=== PATIENT | female | born 1965 | race Caucasian/White ===

== ENCOUNTER 2017-05-04 13:28 | Outpatient (CLI) | payer OTHER ==
--- NOTE | 2017-05-04 14:26 | RAD ---
THORACIC SPINE SERIES: HISTORY: Followup fracture. COMPARISON: 02/02/17 study. FINDINGS: The T8 compression fracture is stable as compared to the prior exam. Bones appear demineralized. A rthritic changes of the spine are noted. IMPRESSION: Stable T8 compression fracture. POS: [facility]
== END 2017-05-04 13:29 | disposition home or self-care (01) ==
LOC: TBSIIMAG 13:28
PROVIDERS: ATTEND Neurological Surgery
DX: S22.008D Other fracture of unspecified thoracic vertebra, subsequent encounter for fracture with routine healing (principal); S22.069D Unspecified fracture of T7-T8 vertebra, subsequent encounter for fracture with routine healing
CPT/HCPCS: 72070

== ENCOUNTER 2017-10-03 16:00 | Emergency (ER) | payer OTHER ==
[2017-10-03] MEDS ORDERED: Fluorescein Opthalmic Strip ONE (16:53)
[2017-10-03] MEDS ORDERED: Proparacaine 0.5% Opth 15 ML BOT ONE (16:53)
== END 2017-10-03 17:09 | disposition home or self-care (01) ==
LOC: ERS 16:00
DX: T65.91XA Toxic effect of unspecified substance, accidental (unintentional), initial encounter (principal); S05.01XA Injury of conjunctiva and corneal abrasion without foreign body, right eye, initial encounter; H10.211 Acute toxic conjunctivitis, right eye; M06.9 Rheumatoid arthritis, unspecified; M81.0 Age-related osteoporosis without current pathological fracture; Z79.899 Other long term (current) drug therapy
CPT/HCPCS: 99283

== ENCOUNTER 2018-03-20 14:55 | Emergency (ER) | payer OTHER ==
[2018-03-20] MEDS ORDERED: Adacel (T-DAP) 0.5 ML VIAL ONE (15:50)
== END 2018-03-20 16:28 | disposition home or self-care (01) ==
LOC: ERS 14:55
DX: S61.512A Laceration without foreign body of left wrist, initial encounter (principal); M81.0 Age-related osteoporosis without current pathological fracture; Z87.891 Personal history of nicotine dependence; W26.0XXA Contact with knife, initial encounter
CPT/HCPCS: 12001; 90471; 90715

== ENCOUNTER 2018-04-05 13:00 | Outpatient (CLI) | payer OTHER | END 2018-04-05 13:01 | disposition home or self-care (01) | LOC: BICRAD 13:00 | PROVIDERS: ATTEND Family Medicine | DX: M54.5 Low back pain (principal); G54.1 Lumbosacral plexus disorders | CPT/HCPCS: 72100 ==

== ENCOUNTER 2018-08-10 08:40 | Outpatient (CLI) | payer OTHER ==
--- NOTE | 2018-08-10 10:56 | BD ---
DEXA BONE DENSITY STUDY: HISTORY: Rheumatoid arthritis. FINDINGS: Lumbar Spine: BMD (g/cm2) L1 0.801 T-Score: -1.7 L2 0.924 T-Score: -0.9 L3 0.855 T-Score: -2.1 L4 0.832 T-Score: -2.1 L1-L4 0.852 T-Score: -1.8 Femoral Neck: 0.674 T-Score: -1.6 Total Femur: 0.707 T-Score: -1.9 Impression: Osteopenia of the lumbar spine and left femoral neck. POS: [facility]
== END 2018-08-10 08:41 | disposition home or self-care (01) ==
LOC: BICMAMMO 08:40
PROVIDERS: ATTEND Internal Medicine Rheumatology
DX: Z13.820 Encounter for screening for osteoporosis (principal); M06.9 Rheumatoid arthritis, unspecified; M85.89 Other specified disorders of bone density and structure, multiple sites
CPT/HCPCS: 77080